=== PATIENT | female | born 1990 | race Hispanic/Latino ===

== ENCOUNTER → 2024-03-15 | Emergency (ER) | payer SELFPAY ==
[~2024-03-15] MED LIST: CLEOCIN150 M1 PO
== END | disposition home or self-care (01) | DRG 603 ==
LOC: ED 15:29
PROC: 0H9HXZZ Drainage of Right Upper Leg Skin, External Approach (ICD-10-PCS; principal; 2024-03-15)
DX: L02.415 Cutaneous abscess of right lower limb (principal)

== ENCOUNTER 2024-03-17 09:42 | Emergency (ER) | payer SELFPAY ==
[~2024-03-17] VITALS: Ht 152.4 cm; Wt 77.1 kg
[2024-03-17 09:51] VITALS: BP 102/64
[2024-03-17 10:01] VITALS: BP 105/72
[2024-03-17 10:16] VITALS: BP 105/62
[2024-03-17] MEDS ORDERED: CLEOCIN150 M1 PO (10:22)
[2024-03-17 10:30] VITALS: BP 103/61
[2024-03-17 10:31] VITALS: BP 103/61
== END 2024-03-17 10:39 | disposition home or self-care (01) | DRG 603 ==
LOC: ED 09:42
DX: L03.115 Cellulitis of right lower limb (principal)